=== PATIENT | female | born 2000 | race Caucasian/White ===

== ENCOUNTER 2022-12-12 17:20 | Emergency (ER) | payer BC ==
--- OUTSIDE RECORDS SUMMARY | 2022-12-12 17:23 | XMS REPORT | Continuity of Care Document ---
:2000 Author Organization [facility] t Address [address] [place] [address] Care Team Providers Name Role Phone ARETHA PALACIO Primary Care Physician Unavailable GERMÁN DUMAS Attending Clinician Unavailable Ildefonso Mireles Attending Clinician Payers Payer Name Policy Type Policy Number Effective Date Expiration Date S [facility] - [id number] 2013 00:00:00 OUT OF STATE Problems Condition Condition Condition Status Onset Resolution Last Treating Co mments Source Name Details Category Date Date Treatment Clinician Date Nam de Nam de Problem Active 2021-07-01 Memoria la la 22:18:35 l Tourette's 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 Problem 07/01/2021 [facility] Migraine Migraine Problem Active 2021-07-01 Memoria (disorder) (disorder) 22:18:35 l Active [place] Problem 07/01/2021 [facility] Tic Tic Problem Active 2021-07-01 Memor ia disorder disorder 22:18:35 l (disorder) (disorder) He rmann Active Problem 07/01/2021 [facility] Blurring Blurring Problem Active 2021-07-01 Memoria of visual of visual 22:18:35 l image image Dway[place] (finding) (finding) Active Problem 07/01/2021 [facility] Dizziness Dizziness Problem Active 2021-07-01 Memoria (finding) (finding) 22:18:35 l Active [place] Problem 07/01/2021 [facility] Allergies, Adverse Reactions, Alerts Allergy Allergy Status Severity Reaction(s) Onset Inactive Treating Comm ents Source Name Type Date Date Clinician NO KNOWN Drug Active James Kay ity of [facility] Social History Smoking Status Start Date Stop Date Source Social History [facility] Medications Ordered Filled Start Stop Current Ordering Indication Dosage Frequency Signature Comments Components Source Medication Medication Date Date Medication? Clinician (SIG) Name Name propranolol Yes 10 mg = 1 M emoria 10 mg oral 6-08 tab, PO, l tablet 21:16: BID, # 60 Fran n 00 tab, 3 Refill(s), Pharmacy: [facility] [id number] [facility], 152.4, cm, 04/25/21 15:56:00 CDT, Height, 54.091, kg, 04/25/21 15:56:00 CDT, Weight Ibuprofen Yes 400 mg = 2 Me moria 200 MG Oral 5-10 tab, PO, l Tablet 19:19: Q8H, PRN Dwayne [Advil] 00 Pain, # 120 tab, 1 Refill(s) Vital Signs Vital Name Observation Time Observation Value Comments Source Systolic (mm Hg) 2021-04-25 20:48:00 Lucho rial [place] Diastolic (mm Hg) 2021-04-25 20:48:00 Mem orial [place] Heart Rate 2021-04-25 20:48:00 [facility] [place] Respitory Rate 2021-04-25 20:48:00 Memori al [place] Height 2021-04-25 20:48:00 152.4 cm [facility] [place] Weight 2021-04-25 20:48:00 [facility] Dwayne BMI Calculated 2021-04-25 20:48:00 Memori al [place] Systolic (mm Hg) 2021-03-27 18:38:00 Lucho rial [place] Diastolic (mm Hg) 2021-03-27 18:38:00 Mem orial [place] Heart Rate 2021-03-27 18:38:00 [facility] [place] Respitory Rate 2021-03-27 18:38:00 Memori al [place] Height 2021-03-27 18:38:00 152.4 cm [facility] [place] Weight 2021-03-27 18:38:00 [facility] Dwayne BMI Calculated 2021-03-27 18:38:00 Memori al [place] Procedures This patient has no known procedures. Encounters Start End Encounter Admission Attending Care Care Encounter Source Date/Time Date/Time Type Type Clinicians Facility Department ID 2021-11-20 2021-11-20 Outpatient Antonio DUMAS [facility] [id number] Univers 09:00:00 09:57:[address] [facility] 2021-11-18 2021-11-18 Outpatient [facility] [id number] Univers 16:00:00 16:00:[id number] [facility] 2021-06-29 2021-06-29 Ambulatory nullFlavo MNA [id number] Memoria 20:45:00 20:45:00 Pre-Reg r Neurology 02 l Mayur Rice 2021-06-29 2021-06-29 Outpatient [facility]IE MHIE [id number] Memoria 15:45:00 15:45:00 02 barrera Dwayne 2021-06-29 2021-06-29 Outpatient SUN MirelesSCHULYSSES MHMISCHER [id number] 15:45:00 15:45:00 Ildefonso 02 Tera 2021-04-25 2021-04-26 Outpatient nullFlavo MNA [id number] Memoria 20:30:00 04:59:59 r Neurology 01 l Mayur Rice 2021-04-25 2021-04-25 Outpatient SUN MirelesSCHER MHMISCHER [id number] 15:30:00 23:59:59 Ildefonso 01 Tera 2021-04-25 2021-04-25 Outpatient MHIE MHIE [id number] Memoria 15:30:00 15:30:00 01 barrera Rice 2021-03-27 2021-03-28 Outpatient nullFlavo MNA [id number] Memoria 18:30:00 04:59:59 r Neurology 00 l Mayur Rice 2021-03-27 2021-03-27 Outpatient SUN MirelesSCHER MHMISCHER [id number] 13:30:00 23:59:59 Ildefonso 00 Tera Results This patient has no known results.
[2022-12-12 18:23] LABS: Absolute Lymphocytes (CBC) 0.9 K/uL (0.7-4.9); Hematocrit 36.8 % (36.0-45.0); MCV 83.5 fL (80-100); MPV 7.5 fL (7.6-11.3); RBC Red Blood Cell Count 4.41 M/uL (3.86-4.86)
[2022-12-12 18:31] LABS: Urine Blood Trace-lysed (Negative); Urine Glucose Negative (Negative); Urine Protein Negative (Negative)
[2022-12-12 18:40] LABS: Albumin 4.2 g/dL (3.4-5.0); Bilirubin Total 0.3 mg/dL (0.2-1.0); Potassium 3.8 mmol/L (3.5-5.1)
[2022-12-12 19:11] LABS: Blood Morphology Comment NOT SEEN (NOT SEEN); Platelet Estimate ADEQ; Platelets, Giant PRESENT
--- NOTE | 2022-12-12 19:28 | RAD REPORT ---
EXAM DESCRIPTION: CTAbdomen Pelvis W Contrast - 12/12/2022 7:08 pm CLINICAL HISTORY: Abdominal pain. pain COMPARISON: No comparisons TECHNIQUE: Biphasic CT imaging of the abdomen and pelvis was performed with 100 ml non-ionic IV cont rast. All CT scans are performed using dose optimization technique as appropriate and may include automated exposure control or mA/KV adjustment according to patient size. FINDINGS: The lung bases are clear. The liver, spleen, pancreas, adrenal glands and kidneys are within normal limits. No bowel obstruction, free air, free fluid or abscess. The appendix is normal. No evidence of signi ficant lymphadenopathy. No suspicious bony findings. IMPRESSION: No acute intra-abdominal or pelvic finding.
--- NOTE | 2022-12-12 19:56 | ER ---
Nurse's Notes [facility] Name: Molly Balderas Age: 22 yrs Sex: Female : 2000 Arrival Date: 12/12/2022 Time: 17:58 Bed 1 Private MD: Diagnosis: Abdominal pain, Generalized;Low back pain Presentation: 12/12 18:08 Chief complaint: Patient states: started having severe abd/back pain around lunch time iw today, no nausea or vomiting. Coronavirus screen: Vaccine status: Patient reports being unvaccinated. Ebola Screen: Patient negative for fever greater than or equal to 101.5 degrees Fahrenheit, and additional compatible Ebola Virus Disease symptoms Patient denies exposure to infectious person. Patient denies travel to an Ebola-affected area in the 21 days before illness onset. Initial Sepsis Screen: Does the patient meet any 2 criteria? No. Patient's initial sepsis screen is negative. Does the patient have a suspected source of infection? No. Patient's initial sepsis screen is negative. Risk Assessment: Do you want to hurt yourself or someone else? Patient reports no desire to harm self or others. Onset of symptoms was December 12, 2022 at 13:30. 18:08 Method Of Arrival: Ambulatory iw 18:08 Acuity: JUDITH 3 iw Historical: - Allergies: 18:11 No Known Allergies; iw - Home Meds: 18:11 None [Active]; iw - PMHx: 18:11 None; iw - PSHx: 18:11 None; iw - Social history:: Smoking status: Patient denies any tobacco usage or history of. Assessment: 20:10 Reassessment: Pt is in NAD, VSS, ambulatory without assistance. Pt speech is clear, jh5 AAOX4, answers questions appropriately at this time. Pt states her pain has significantly decreased, is understanding of her discharge paperwork and verbally confirms the provider came to bedside to discuss results. Will DC IV and escort to lobby. Vital Signs: 18:07 BP 126 / 86; Pulse 81; Resp 18; Temp 98.8; Pulse Ox 100% on R/A; Weight 56.7 kg; Height iw 4 ft. 11 in. (149.86 cm); Pain 9/10; 18:07 Body Mass Index 25.25 (56.70 kg, 149.86 cm) iw ED Course: 17:58 Patient arrived in ED. am2 18:02 [facility] Hardin [facility]C [facility] kb 18:02 Shahzad Irene MD is Attending Physician. kb 18:11 Triage completed. iw 18:19 CBC with Diff Sent. bc6 18:19 CMP Sent. bc6 18:19 Lipase Sent. bc6 18:19 Initial lab(s) drawn, by nc, sent to lab. Inserted saline lock: 20 gauge in right bc6 antecubital area, using aseptic technique. 18:34 Urine collected: clean catch specimen. bc6 19:10 CT Abd/Pelvis - IV Contrast Only In Process Unspecified. EDMS 20:13 IV discontinued, intact, bleeding controlled, No redness/swelling at site. Pressure jh5 dressing applied. Administered Medications: 20:05 Drug: Ketorolac 15 mg Route: IVP; Site: right antecubital; [facility] Outcome: 19:56 Discharge ordered by MD. kb 20:13 Discharged to home ambulatory. jh5 20:13 Condition: good 20:13 Discharge instructions given to patient, family, Instructed on discharge instructions, follow up and referral plans. medication usage, safety practices, Demonstrated understanding of instructions, follow-up care, medications. 20:17 Patient left the ED. 5 Signatures: Dispatcher [employer] EDMS Clarissa Hardin FNP-C FNP-Martine Botello, RN EVELYNE Tarsha Coughlin am2 Suyapa Beck RN RN [facility] Marisa Gil [facility]
--- NOTE | 2022-12-12 19:56 | EDPHYS ---
Physician Documentation [facility] Name: Molly Balderas Age: 22 yrs Sex: Female : 2000 Arrival Date: 12/12/2022 Time: 17:58 Bed 1 Private MD: ED Physician Shahzad Irene HPI: 12/12 21:29 This 22 yrs old Female presents to ER via Ambulatory with complaints of Abdominal Pain, kb Back Pain. 21:29 The patient presents with abdominal pain that is diffuse. Onset: The symptoms/episode kb began/occurred just prior to arrival. The symptoms radiate to back. Associated signs and symptoms: none. The symptoms are described as constant. Modifying factors: The symptoms are alleviated by nothing, the symptoms are aggravated by movement, pressure. Severity of pain: At its worst the pain was moderate in the emergency department the pain is unchanged. The patient has not experienced similar symptoms in the past. The patient has not recently seen a physician. Historical: - Allergies: 18:11 No Known Allergies; iw - Home Meds: 18:11 None [Active]; iw - PMHx: 18:11 None; iw - PSHx: 18:11 None; iw - Social history:: Smoking status: Patient denies any tobacco usage or history of. ROS: 21:27 Constitutional: Negative for fever, chills, and weight loss. kb 21:27 Abdomen/GI: Positive for abdominal pain. 21:27 Back: Positive for pain at rest, pain with movement, of the lumbar area. 21:27 All other systems are negative. Exam: 21:27 Constitutional: This is a well developed, well nourished patient who is awake, alert, kb and in no acute distress. Head/Face: Normocephalic, atraumatic. ENT: Moist Mucous membranes Cardiovascular: Regular rate and rhythm with a normal S1 and S2. No gallops, murmurs, or rubs. No pulse deficits. Respiratory: Respirations even and unlabored. No increased work of breathing. Talking in full sentences Skin: Warm, dry with normal turgor. Normal color. MS/ Extremity: Pulses equal, no cyanosis. Neurovascular intact. Full, normal range of motion. Neuro: Awake and alert, GCS 15, oriented to person, place, time, and situation. Moves all extremities. Normal gait. Psych: Awake, alert, with orientation to person, place and time. Behavior, mood, and affect are within normal limits. 21:27 Abdomen/GI: Inspection: abdomen appears normal, Bowel sounds: normal, Palpation: soft, in all quadrants, mild abdominal tenderness, in all quadrants. 21:27 Back: pain, that is moderate, of the low back area and mid back area. Vital Signs: 18:07 BP 126 / 86; Pulse 81; Resp 18; Temp 98.8; Pulse Ox 100% on R/A; Weight 56.7 kg; Height iw 4 ft. 11 in. (149.86 cm); Pain 9/10; 18:07 Body Mass Index 25.25 (56.70 kg, 149.86 cm) iw MDM: 18:05 Patient medically screened. kb 21:28 Differential diagnosis: non-specific abd pain, Pyelonephritis, Ureterolithiasis. Data kb reviewed: vital signs, nurses notes. Historians other than the Patient: Spouse/Significant Other: significant other. Counseling: I had a detailed discussion with the patient and/or guardian regarding: the historical points, exam findings, and any diagnostic results supporting the discharge/admit diagnosis, lab results, radiology results, the need for outpatient follow up, a family practitioner, to return to the emergency department if symptoms worsen or persist or if there are any questions or concerns that arise at home. 12/12 18:06 Order name: CBC with Diff; Complete Time: 19:12 kb 12/12 18:06 Order name: CMP; Complete Time: 18:41 kb 12/12 18:06 Order name: Lipase; Complete Time: 18:41 kb 12/12 18:31 Order name: Urine Dipstick-Ancillary; Complete Time: 18:34 EDMS 12/12 18:33 Order name: Urine --Ancillary (enter results); Complete Time: 19:16 bd 12/12 19:11 Order name: Manual Differential; Complete Time: 19:12 EDCT 12/12 18:06 Order name: CT Abd/Pelvis - IV Contrast Only; Complete Time: 19:37 kb 12/12 18:06 Order name: IV Saline Lock; Complete Time: 18:19 kb 12/12 18:06 Order name: Labs collected and sent; Complete Time: 18:19 kb 12/12 18:06 Order name: Urine Dipstick-Ancillary (obtain specimen); Complete Time: 18:33 kb 12/12 18:06 Order name: Urine Test (obtain specimen); Complete Time: 18:33 kb Administered Medications: 20:05 Drug: Ketorolac 15 mg Route: IVP; Site: right antecubital; jh5 Disposition Summary: 12/12/22 19:56 Discharge Ordered Location: Home kb Condition: Stable kb Diagnosis - Abdominal pain, Generalized kb - Low back pain kb Followup: kb - With: Emergency Department - When: As needed - Reason: Worsening of condition Followup: kb - With: Private Physician - When: 2 - 3 days - Reason: Recheck today's complaints, Continuance of care, Re-evaluation by your physician Discharge Instructions: - Discharge Summary Sheet kb - Acute Back Pain, Adult kb - Musculoskeletal Pain kb - Abdominal Pain, Adult, [id number] kb Forms: - Medication Reconciliation Form kb - Thank You Letter kb - Antibiotic Education kb - Prescription Opioid Use kb Prescriptions: - Diclofenac Sodium 75 mg Oral tablet,delayed release (DR/EC) - take 1 tablet by ORAL route 2 times per day As needed; 30 tablet; Refills: 0, kb Product Selection Permitted - orphenadrine citrate 100 mg Oral Tablet Sustained Release - take 1 tablet by ORAL route 2 times per day As needed; 20 tablet; Refills: 0, kb Product Selection Permitted Signatures: Dispatcher [employer] Clarissa Hahn, LILLIANA-Andrea TIJERINA-Martine Botello, RN Suyapa Pat RN RN jh5
[2022-12-12] MEDS ORDERED: KETOROLAC 30 MG/ML INJ ONE (20:10)
[2022-12-12 21:26] VITALS: BP 126/86; TEMP 98.8; O2SAT 100
== END 2022-12-12 20:17 | disposition home or self-care (01) ==
LOC: ER 17:20
DX: R10.84 Generalized abdominal pain (principal); M54.50 Low back pain, unspecified
CPT/HCPCS: 85025; 36415; 81025; 81003; 83690; 80053; 74177; Q9967